=== PATIENT | female | born 1990 | race Caucasian/White ===

== ENCOUNTER 2019-12-17 22:35 | Outpatient (CLI) | payer BC ==
[2019-12-17 23:32] VITALS: BP 120/75; PULSE 95; RESP 16; TEMP 98.7
--- NOTE | 2020-01-03 11:34 | P.MSEPDOC ---
Presenting Problems - Arrival Data Date of Arrival on Unit: 12/17/19 Time of Arrival on Unit: 22:35 Mode of Transport: Ambulatory - Complaint OB-Reason for Admission/Chief Complaint: Decreased Movement Medical History - Information : 1 Para: 0 Term: 0 : 0 Abortions: Spontaneous or Elective: 0 Number of Living Children: 0 - Gestational Age Gestational Age by ATILIO (wks/days): 40 Weeks and 6 Days Review of Systems - Review of Systems Constitutional: No problems Breast: No problems ENT: No problems Cardiovascular: No problems Respiratory: No problems Gastrointestinal: No problems Genitourinary: No problems Musculoskeletal: No problems Neurological: No problems Skin: No problems Vital Signs - Temperature Temperature: 98.7 F Temperature Source: Temporal Artery Scan - Pulse Right Pulse Rate: 95 Pulse Assessment Method: Pulse Oximetry - Respirations Respiratory Rate: 16 O2 Sat by Pulse Oximetry: 97 - Blood Pressure Right Arm Blood Pressure: 120/75 Blood Pressure Mean: 90 Blood Pressure Source: Automatic Cuff Medical Screen Scoring (Pre) - Cervical Exam Dilation: 1-3 cm = 1 Membranes: Intact - Uterine Contractions Frequency: > or = 36 weeks =2 Duration: > 40 seconds = 2 Intensity: N/A - Maternal Vital Signs Maternal Temperature: N/A Maternal Blood Pressure: N/A Signs of Preeclampsia: N/A Maternal Respirations: N/A - Maternal Trauma Maternal Trauma: N/A - Assessment - Baby A Baseline FHR: 130 Heart Rate - NICHD Category: Category I (Normal) = 0 NST: Reactive Position: N/A Station: N/A - Total Score - Baby A Total Score - Baby A: 5 - Total Score - Baby B Total Score - Baby B: 5 - Total Score - Baby C Total Score - Baby C: 5 - Level of Risk - Baby A Level of Risk - Baby A: Low (0-5) - Level of Risk - Baby B Level of Risk - Baby B: Low (0-5) - Level of Risk - Baby C Level of Risk - Baby C: Low (0-5) Physician Notification (Pre) - Physician Notified Physician Notified Date: 12/17/19 Physician Notified Time: 23:15 - Notification Comment Comment: Dr Person called to check on pt. Reported on pts c/o decreased fm all day. Reported on admission and since being here, reactive NST, cntrx every 5-6 but pt is not. feeling them, reported on SVE unchanged from office. Orders to continue monitoring for. another 30-40 minutes, if baby remains reactive, d/c home with instructions. pt had appt. scheduled for wednesday and is to keep that, otherwise return with new or worsening sx Disposition - Disposition OB Disposition: Discharge to home Discharge Date: 12/17/19 Discharge Time: 23:56 I agree with the RN Medical Screening Exam: Yes Risk & Benefit of care provided described in d/c instruction: Yes Diagnosis: DECREASED MOVEMENTS, THIRD TRIMESTER, FETUS 1
== END 2019-12-17 23:59 | disposition home or self-care (01) ==
LOC: FBPOP 22:35
PROVIDERS: ATTEND Obstetrics & Gynecology Obstetrics
DX: O36.8131 Decreased fetal movements, third trimester, fetus 1 (principal); Z3A.40 40 weeks gestation of pregnancy
CPT/HCPCS: 59025; 99213

== ENCOUNTER 2019-12-18 | Inpatient (IN) | payer BC | END 2019-12-21 12:43 | disposition home or self-care (01) | DRG 807 | PROVIDERS: ADMIT Obstetrics & Gynecology | PROC: 0HQ9XZZ Repair Perineum Skin, External Approach (ICD-10-PCS; principal; 2019-12-19) | PROC: 10E0XZZ Delivery of Products of Conception, External Approach (ICD-10-PCS; principal; 2019-12-19) | CPT/HCPCS: 59025; 85025; 86850; 86900; 86901; 88307; 99213 ==

== ENCOUNTER 2022-06-14 06:26 | Inpatient (IN) | payer BC ==
[2022-06-14] MEDS ORDERED: TERBUTALINE 1 MG/ML VIAL SQ PRN (06:45)
[2022-06-14] MEDS ORDERED: METHYLERGONOVINE 0.2 MG/ML 1 ML AMP IM PRN (06:45)
[2022-06-14] MEDS ORDERED: OXYTOCIN 10 UNIT/ML 1 ML VIAL IM PRN (06:45)
[2022-06-14] MEDS ORDERED: AMPICILLIN 2,000 MG in SODIUM CHLORIDE 0.9% 100 ML IVPB STA (06:45)
[2022-06-14] MEDS ORDERED: CARBOPROST TROMETHAMINE 250 MCG/ML 1 ML AMP IM PRN (06:45)
[2022-06-14] MEDS ORDERED: LIDOCAINE 0.5% (PF) 5 MG/ML (50 ML SDV) SQ PRN (06:45)
[2022-06-14] MEDS: LACTATED RINGERS 1,000 ML IV SCH ×2 (07:08→07:30)
[2022-06-14 07:22] LABS: Anisocytosis Slight; Basophils % (A) 0 %; Eosinophils # (A) 0.1 k/uL (0-0.7); Eosinophils % (A) 1 %; HCT 31.2 % (34.0-46.0); HGB 9.6 gm/dL (11.4-16.0); Hypochromasia Marked; Lymphocytes # (A) 1.6 k/uL (1.0-4.8); Lymphocytes % (A) 19 %; MCH 22.8 pg (25.0-35.0); MCHC 30.8 g/dL (31.0-37.0); Mean Platelet Volume 7.8; Microcytosis Moderate; Monocytes # (A) 0.6 k/uL (0-1.0); Monocytes % (A) 7 %; Neutrophils # (A) 6.1 k/uL (1.3-7.7); Neutrophils % (A) 70 %; Platelet Count 222 k/uL (150-450); Poikilocytosis Slight; RBC 4.22 m/uL (3.80-5.40); RDW 17.4 % (11.5-15.5); WBC 8.7 k/uL (3.8-10.6)
[2022-06-14] MEDS ORDERED: SODIUM CHLORIDE 0.9% 100 ML BAG ONE (07:27)
[2022-06-14] MEDS ORDERED: fentaNYL (PF) 50 MCG/ML 5 ML AMP ONE (07:27)
[2022-06-14] MEDS ORDERED: ROPIVACAINE 5 MG/ML 20 ML AMPULE ONE (07:27)
[2022-06-14] MEDS ORDERED: AMPICILLIN 1,000 MG in SODIUM CHLORIDE 0.9% 50 ML IVPB SCH (10:45)
[2022-06-14] MEDS ORDERED: ZOLPIDEM 5 MG TAB PO PRN (12:18)
[2022-06-14] MEDS ORDERED: ACETAMINOPHEN TAB 325 MG TAB PO PRN (12:18)
[2022-06-14] MEDS ORDERED: diphenhydrAMINE 25 MG CAP PO PRN (12:18)
[2022-06-14] MEDS ORDERED: BENZOCAINE/MENTHOL SPRAY 1 GM/SPRAY AEROSOL TOPICAL PRN (12:18)
[2022-06-14] MEDS ORDERED: diphenhydrAMINE 50 MG/ML 1 ML VIAL IVP PRN ×2 (12:18)
[2022-06-14] MEDS ORDERED: LANOLIN CREAM 5 GM TUBE TOPICAL PRN (12:18)
[2022-06-14] MEDS ORDERED: HYDROCORTISONE 2.5% RECTAL CREAM 30 GM TUBE RECTAL PRN (12:18)
[2022-06-14] MEDS ORDERED: SIMETHICONE 80 MG CHEWABLE PO PRN (12:18)
[2022-06-14] MEDS ORDERED: diphenhydrAMINE 50 MG CAP PO PRN (12:18)
--- NOTE | 2022-06-14 12:21 | P.HPOB ---
History of Present Illness H&P Date: 06/14/22 Chief Complaint: IUP at 39-4/7 This is a 32-year-old at 39-4/7 weeks that presents to labor and delivery with complaints of regular painful contractions that started around 1 AM. Patient has been receiving routine care with myself which is been essentially uncomplicated, gestational anemia. Patient was noted to be 4 cm with a bulging bag of water on initial exam. Patient notes good movement denies vaginal bleeding or loss of fluid. On bloodwork this patient has a blood type of A+, rubella status nonimmune, B surface antigen negative, HIV negative, RPR is nonreactive, group beta strep is positive Review of Systems Constitutional: Denies chills, Denies fatigue, Denies fever Ears, nose, mouth and throat: Denies headache Cardiovascular: Reports leg edema Respiratory: Denies dyspnea Gastrointestinal: Denies nausea, Denies vomiting Genitourinary: Reports Past Medical History Past Medical History: No Reported History History of Any Multi-Drug Resistant Organisms: None Reported Additional Past Surgical History / Comment(s): [place] teeth in 2014 Past Anesthesia/Blood Transfusion Reactions: No Reported Reaction Past Psychological History: No Psychological Hx Reported Smoking Status: Never smoker Past Drug Use History: None Reported - Past Family History Father Family Medical History: Cancer Medications and Allergies Home Medications Medication Instructions Recorded Confirmed Type Pnv No.95/Ferrous Fum/Folic AC 1 tab PO DAILY 12/17/19 06/14/22 History [ Multivitamin Tablet] Allergies Allergy/AdvReac Type Severity Reaction Status Date / Time No Known Allergies Allergy Verified 12/17/19 22:39 Exam Osteopathic Statement: *. No significant issues noted on an osteopathic structural exam other than those noted in the History and Physical/Consult. Vital Signs Temp Pulse Resp BP Pulse Ox 06/14/22 06:45 97.5 F L 75 16 115/63 100 Intake and Output 06/13/22 06/14/22 06/14/22 22:59 06:59 14:59 Other: Weight 97.522 kg Targeted physical exam is in general this is a well-nourished well-developed female comfortable with an epidural, breathing is nonlabored, heart has a regular rate and rhythm, abdomen is gravid, she is completely dilated and a bulging bag of water appreciated. heart tones are noted to be category 1, contractions not graphing well. Results Result Diagrams: 06/14/22 07:05 Abnormal Lab Results - Last 24 Hours (Table) 06/14/22 Range/Units 07:05 Hgb 9.6 L (11.4-16.0) gm/dL Hct 31.2 L (34.0-46.0) % MCV 74.0 L (80.0-100.0) fL MCH 22.8 L (25.0-35.0) pg MCHC 30.8 L (31.0-37.0) g/dL RDW 17.4 H (11.5-15.5) % Assessment and Plan (1) Term Current Visit: Yes Status: Acute Code(s): Z34.90 - ENCNTR FOR SUPRVSN OF NORMAL , UNSP, UNSP TRIMESTER SNOMED Code(s): 62639796 (2) Positive GBS test Current Visit: Yes Status: Acute Code(s): B95.1 - STREPTOCOCCUS, GROUP B, CAUSING DISEASES CLASSD ELSR SNOMED Code(s): 466107286 (3) Active labor Current Visit: No Status: Acute Code(s): WNV9984 - SNOMED Code(s): 536060815 (4) Anemia affecting Current Visit: Yes Status: Acute Code(s): O99.019 - ANEMIA COMPLICATING , UNSPECIFIED TRIMESTER SNOMED Code(s): 26552121 Plan: 32 yo at 39 4/7 weeks that presented with complaints of contractions that began around 1am. She was admitted to labor and delivery and quickly requested an epidural. Patient is known GBS positive and antibiotics are begun. Interceed spontaneous vaginal delivery
--- NOTE | 2022-06-14 12:24 | P.PROBDLV ---
Vaginal Delivery Note - . Vaginal Delivery Note: 32-year-old 2 para 1001 presented to labor and delivery at 39-4/7 weeks' complaints of regular painful contractions. Patient was deemed to be in active labor and was admitted to labor and delivery. Patient progressed through labor eventually becoming uncomfortable and requesting epidural placement. Patient was known group B strep positive antibiotics were begun upon admission. Patient noted rupture of membranes with thin meconium at 1043. patient was noted to be completely dilated at that time. Patient was put in a modified lithotomy position and began pushing. With excellent maternal effort she had a normal spontaneous vaginal delivery of a viable female at 12:00, weight of 7 lbs. 14 oz., Apgars of 9 and 9 at one and 5 minutes respectively. After it two- minute delayed the umbilical cord was doubly clamped and cut and the was handed to the maternal abdomen. A spontaneous cry was noted at . On inspection the patient's vaginal vault a first-degree vaginal laceration was appreciated. This was repaired in usual fashion with 3-0 repeat after instillation of lidocaine. Generalized edema was appreciated vaginally from pushing. Uterus was noted be firm and below the umbilicus after delivery. Estimated blood loss 200 mL. All counts were noted correct 2 at the delivery. Mom and tolerated delivery well and are resting comfortably.
[2022-06-14] MEDS ORDERED: OXYTOCIN 30 UNITS/500 ML NS 30 UNIT in SALINE 1 500ML.BAG IV SCH (12:30)
[2022-06-14] MEDS: IBUPROFEN 600 MG TAB PO SCH ×2 (13:06→19:29)
[2022-06-14] MEDS: SENNOSIDES-DOCUSATE SODIUM 1 EACH TAB PO SCH (19:29)
[2022-06-14] MEDS ORDERED: MEASLES-MUMPS-RUBELLA VACC/PF 12,500 UNIT/0.5 ML VIAL SQ ONE (19:38)
[2022-06-15] MEDS: IBUPROFEN 600 MG TAB PO SCH ×3 (00:54→08:35)
[2022-06-15] MEDS: SENNOSIDES-DOCUSATE SODIUM 1 EACH TAB PO SCH (08:36)
[2022-06-15 08:40] VITALS: BP 131/79; PULSE 99; RESP 15; TEMP 97.5
[2022-06-15] MEDS ORDERED: PRENATAL VIT-IRON-FOLIC ACID 1 EACH TABLET PO SCH (09:00)
[2022-06-15 10:04] LABS: Anisocytosis Slight; Basophils % (A) 0 %; Eosinophils # (A) 0.1 k/uL (0-0.7); Eosinophils % (A) 1 %; HCT 27.7 % (34.0-46.0); HGB 8.2 gm/dL (11.4-16.0); Hypochromasia Marked; Lymphocytes # (A) 1.1 k/uL (1.0-4.8); Lymphocytes % (A) 13 %; MCH 22.5 pg (25.0-35.0); MCHC 29.6 g/dL (31.0-37.0); MCV 75.8 fL (80.0-100.0); Mean Platelet Volume 9.2; Microcytosis Slight; Monocytes # (A) 0.5 k/uL (0-1.0); Monocytes % (A) 6 %; Neutrophils # (A) 6.9 k/uL (1.3-7.7); Neutrophils % (A) 78 %; Platelet Count 183 k/uL (150-450); Poikilocytosis Slight; RBC 3.65 m/uL (3.80-5.40); RDW 17.5 % (11.5-15.5); WBC 8.8 k/uL (3.8-10.6)
--- NOTE | 2022-06-15 10:25 | P.DS ---
Providers Date of admission: 06/14/22 06:43 Expected date of discharge: 06/15/22 Attending physician: Leeanna Person Primary care physician: Leeanna Person - Discharge Diagnosis(es) (1) Term Current Visit: Yes Status: Acute (2) Positive GBS test Current Visit: Yes Status: Acute (3) Active labor Current Visit: No Status: Acute (4) Anemia affecting Current Visit: Yes Status: Acute (5) First degree perineal laceration during delivery Current Visit: Yes Status: Acute (6) Status post vaginal delivery Current Visit: No Status: Acute Hospital Course: This is a 32-year-old 2 now para 2 that presented to labor and delivery on 06/14 with complaints of regular painful contractions. Patient stated contractions started around 1 AM. Patient was deemed to be in active labor and was admitted to labor and delivery time. Patient has been receiving routine care which had been essentially uncomplicated up to this point. Patient was admitted and IV antibiotics were begun and she was group beta strep culture positive. Patient progressed through labor eventually becoming uncomfortable and requesting an epidural. Epidural was placed without difficulty by the anesthesia . Patient had spontaneous rupture of membranes revealing thin meconium was noted to be completely dilated. Patient had an urge to push at that time therefore pushing commenced. Patient had a normal spontaneous vaginal delivery of a viable female at 12:00, weight of 7 lbs. 14 oz. Patient did sustain a first-degree vaginal laceration during delivery this was repaired in usual fashion with 3-0 Rapide after instillation of lidocaine. Patient's course has been uneventful. On this day #1 she is ambulating and voiding without difficulty. She is tolerating a regular diet without nausea or vomiting. She states her lochia is moderate. She denies concerns and would like discharge home at 24 hours. Patient Condition at Discharge: Good Plan - Discharge Summary New Discharge Prescriptions: No Action Pnv No.95/Ferrous Fum/Folic AC [ Multivitamin Tablet] 1 tab PO DAILY Discharge Medication List Pnv No.95/Ferrous Fum/Folic AC [ Multivitamin Tablet] 1 tab PO DAILY 12/17/19 [History] Follow up Appointment(s)/Referral(s): Leeanna Person DO [Primary Care Provider] - 4 Weeks Patient Instructions/Handouts: Vaginal Delivery (DC), Vaginal Delivery (GEN) Discharge Disposition: HOME SELF-CARE
== END 2022-06-15 12:47 | disposition home or self-care (01) | DRG 807 ==
LOC: FBPOP 06:26 → 4FBP 06:43
PROVIDERS: ADMIT Obstetrics & Gynecology Obstetrics; ATTEND Obstetrics & Gynecology Obstetrics
PROC: 3E0R3NZ Introduction of Analgesics, Hypnotics, Sedatives into Spinal Canal, Percutaneous Approach (ICD-10-PCS; principal; 2022-06-14)
PROC: 00HU33Z Insertion of Infusion Device into Spinal Canal, Percutaneous Approach (ICD-10-PCS; principal; 2022-06-14)
PROC: 10E0XZZ Delivery of Products of Conception, External Approach (ICD-10-PCS; principal; 2022-06-14)
PROC: 0HQ9XZZ Repair Perineum Skin, External Approach (ICD-10-PCS; principal; 2022-06-14)
DX: O99.02 Anemia complicating childbirth (principal); D64.89 Other specified anemias; O77.0 Labor and delivery complicated by meconium in amniotic fluid; O70.0 First degree perineal laceration during delivery; O99.824 Streptococcus B carrier state complicating childbirth; Z28.310 Unvaccinated for COVID-19; Z3A.39 39 weeks gestation of pregnancy; Z37.0 Single live birth
CPT/HCPCS: 59025; 85025; 86850; 86900; 86901; 90471; 90707; 99213

== ENCOUNTER 2023-09-16 15:19 | Outpatient (CLI) | payer BC ==
[2023-09-16 16:36] VITALS: BP 127/79; PULSE 95; RESP 16; TEMP 97
== END 2023-09-16 15:56 | disposition home or self-care (01) ==
LOC: FBPOP 15:19
PROVIDERS: ATTEND Obstetrics & Gynecology Obstetrics
DX: O30.003 Twin pregnancy, unspecified number of placenta and unspecified number of amniotic sacs, third trimester (principal); Z3A.34 34 weeks gestation of pregnancy
CPT/HCPCS: 59025

== ENCOUNTER 2023-09-28 08:00 | Inpatient (IN) | payer BC ==
[2023-09-28] MEDS ORDERED: OXYTOCIN 10 UNIT/ML 1 ML VIAL IM PRN (08:17)
[2023-09-28] MEDS ORDERED: TRANEXAMIC 1,000 MG/100ML-NACL 1,000 MG in EMPTY BAG 1 BAG IV PRN (08:17)
[2023-09-28] MEDS ORDERED: METHYLERGONOVINE 0.2 MG/ML 1 ML AMP IM PRN (08:17)
[2023-09-28] MEDS ORDERED: LACTATED RINGERS 1,000 ML IV ONE (08:17)
[2023-09-28] MEDS ORDERED: CITRIC ACID-SODIUM CITRATE 15 ML CUP PO ONE (08:17)
[2023-09-28] MEDS ORDERED: miSOPROStoL 200 MCG TAB PO PRN (08:17)
[2023-09-28] MEDS ORDERED: CARBOPROST TROMETHAMINE 250 MCG/ML 1 ML AMP IM PRN (08:17)
[2023-09-28 08:26] LABS: Basophils % (A) 0 %; Eosinophils # (A) 0.1 k/uL (0-0.7); Eosinophils % (A) 1 %; HCT 33.7 % (34.0-46.0); HGB 11.1 gm/dL (11.4-16.0); Hypochromasia Slight; Lymphocytes # (A) 0.6 k/uL (1.0-4.8); Lymphocytes % (A) 9 %; MCHC 32.9 g/dL (31.0-37.0); MCV 81.8 fL (80.0-100.0); Mean Platelet Volume 10.8; Monocytes # (A) 0.6 k/uL (0-1.0); Monocytes % (A) 8 %; Neutrophils % (A) 80 %; Platelet Count 177 k/uL (150-450); RBC 4.12 m/uL (3.80-5.40); RDW 14.9 % (11.5-15.5); WBC 7.5 k/uL (3.8-10.6)
--- NOTE | 2023-09-28 09:52 | P.HPOB ---
History of Present Illness H&P Date: 09/28/23 Chief Complaint: mono/di twins at 36 1/7 weeks This 33-year-old 3 para 2001 at 36 and one sevenths weeks with known [place] chorionic diamniotic twins. Patient has been receiving routine care with myself and maternal- medicine. Patient has undergone testing with good concordant growth being noted between baby A and baby B. On last ultrasound a was noted to be vertex, be noted to be transverse in nature. Given these position recommended primary . Last ultrasound with polyhydramnios noted in a can be. Patient has noted good movement, denies contractions vaginal bleeding or loss of fluid. On bloodwork this patient is A+, rubella status immune, B surface engine negative, HIV negative, RPR is nonreactive, group beta strep culture is positive. 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 Past Medical History Past Medical History: No Reported History History of Any Multi-Drug Resistant Organisms: None Reported Past Surgical History: No Surgical Hx Reported Additional Past Surgical History / Comment(s): [place] teeth in 2014 Past Anesthesia/Blood Transfusion Reactions: No Reported Reaction Past Psychological History: No Psychological Hx Reported Smoking Status: Never smoker Past Alcohol Use History: None Reported Past Drug Use History: None Reported - Past Family History Father Family Medical History: Cancer Medications and Allergies Home Medications Medication Instructions Recorded Confirmed Type Pnv No.95/Ferrous Fum/Folic AC 1 tab PO DAILY 12/17/19 09/28/23 History [ Multivitamin Tablet] Calcium(Unk) 1 tab PO DAILY 09/22/23 09/28/23 History Iron(Unk) 1 tab PO DAILY 09/22/23 09/28/23 History Magnesium (Unk) 1 dose PO DAILY 09/22/23 09/28/23 History Allergies Allergy/AdvReac Type Severity Reaction Status Date / Time No Known Allergies Allergy Verified 09/28/23 08:15 Exam Osteopathic Statement: *. No significant issues noted on an osteopathic structural exam other than those noted in the History and Physical/Consult. Vital Signs Temp Pulse Resp BP Pulse Ox 09/28/23 08:10 97.8 F 115 H 18 126/74 97 Intake and Output 09/27/23 09/28/23 09/28/23 22:59 06:59 14:59 Other: Weight 101.605 kg Results Result Diagrams: 09/28/23 08:15 Abnormal Lab Results - Last 24 Hours (Table) 09/28/23 Range/Units 08:15 Hgb 11.1 L (11.4-16.0) gm/dL Hct 33.7 L (34.0-46.0) % Lymphocytes # 0.6 L (1.0-4.8) k/uL Assessment and Plan (1) Monochorionic diamniotic twin gestation Current Visit: Yes Status: Acute Code(s): O30.039 - TWIN , MONOCHORIONIC/DIAMNIOTIC, UNSP TRIMESTER SNOMED Code(s): 96965142 Plan: 33-year-old at 36 one sevenths weeks that presents for scheduled primary secondary to monochorionic, diamniotic twin gestation. 's noted to be in vertex, transverse presentation. Recommendation for is discussed with patient and she states understanding. Risks of surgery are reviewed including but not limited to infection, bleeding, damage to bladder, bowel, injury. Patient states understanding and wishes to proceed.
[2023-09-28] MEDS: LACTATED RINGERS 1,000 ML IV SCH ×3 (10:09→15:34)
[2023-09-28] MEDS ORDERED: fentaNYL (PF) 50 MCG/ML 2 ML AMP ONE (10:34)
[2023-09-28] MEDS ORDERED: MORPHINE SULFATE (PF) 0.3 MG/0.3 ML SYR ONE (10:34)
[2023-09-28] MEDS ORDERED: KETOROLAC 15 MG/ML 1 ML VIAL ONE (10:34)
[2023-09-28] MEDS ORDERED: OXYTOCIN 30 UNITS/500 ML NS BAG IV ONE (10:34)
--- NOTE | 2023-09-28 11:38 | P.OP ---
Date of Procedure: 09/28/23 Preoperative Diagnosis: [place] chorionic diamniotic twin gestation 36 1/7 weeks, unstable lie, polyhydramnios Postoperative Diagnosis: Same Procedure(s) Performed: Primary low transverse section Anesthesia: spinal Surgeon: Leeanna Person Computer Peripheral Equipment Operator #1: Lito Alvarez Estimated Blood Loss (ml): 530 IV fluids (ml): 700 Urine output (ml): 100 Pathology: other (Placenta) Condition: stable Disposition: PACU Indications for Procedure: Monochorionic, diamniotic twin gestation, polyhydramnios 2 unstable lie of baby B Operative Findings: Viable male infant delivered at 1055, weight of 5 lbs. 9 oz., Apgars of 9 and 9 at one and 5 minutes respectively, viable male infant delivered at 1056, weight of 6 lbs. 8 oz., Apgars of 8 and 9 at one and 5 minutes respectively Normal uterus tubes and ovaries are appreciated. Description of Procedure: Patient taken back to the operating suite where spinal anesthesia was found be adequate by the anesthesia department. She was prepped and draped in the normal sterile fashion in the dorsal supine position. A Steel catheter was placed just after spinal was placed. A Pfannenstiel skin incision was made with the scalpel and carried through to underlying layer of fascia. The fascia was incised in the midline and extended laterally. The superior aspect of the fascial incision was then grasped mini clamps, elevated and underlying rectus muscles dissected off sharply. The inferior aspect of the fascial incision was then grasped mini clamps, elevated and underlying rectus muscles dissected off sharply. The rectus muscles were in the midline the peritoneum was identified and entered. The bladder blade was then inserted and the pelvis and the peritoneal incision was extended superiorly and inferiorly with good visualization the bladder. The vesicouterine peritoneum was identified and the bladder flap was then created using sharp and blunt dissection. The scalpel was used to perform a hysterotomy incision clear fluid was obtained baby A was noted to be in a vertex presentation and delivered in the usual fashion the cord was doubly clamped and cut and handed off to awaiting RN a large pocket of fluid was appreciated in front of baby B's presenting part the head was palpated amniotomy was performed and copious clear fluid was noted and baby B was delivered in a vertex presentation in the usual fashion. The umbilical cords doubly clamped and cut and handed off to awaiting RN. The placenta was delivered manually and the uterus was cleared of all clots and debris. The uterus exteriorized hysterotomy incision was closed with 0 Vicryl in a running locked fashion. A second inverting suture was performed. Small amount of bleeding was noted on the midportion of the uterus therefore a inyhvr-xe-[id number] suture was used to obtain hemostasis. The uterus was then returned to the abdomen. The gutters were cleared of all clots and debris. On inspection the patient's hysterotomy incision a small amount of bleeding was noted on the bladder flap therefore Surgicel powder was placed along this area and along the hysterotomy incision. Hemostasis was appreciated. The peritoneum was then loosely reapproximated. The rectus muscles were inspected and any points of bleeding were made hemostatic with the Bovie. The fascia was then closed with 0 Vicryl in a running fashion from one lateral edge the other. The subcutaneous tissue was irrigated and any points of bleeding were made hemostatic with the Bovie. The subcutaneous tissue was closed with 3-0 Vicryl in a running fashion. The skin was closed with 4-0 Vicryl in a subcuticular fashion. Steri-Strips and sterile dressings were applied. All counts were noted be correct 2. Patient and infants tolerated delivery well and are resting comfortably.
[2023-09-28] MEDS ORDERED: diphenhydrAMINE 25 MG CAP PO PRN (12:35)
[2023-09-28] MEDS ORDERED: ONDANSETRON 4 MG/2 ML VIAL IVP PRN (12:35)
[2023-09-28] MEDS ORDERED: diphenhydrAMINE 50 MG/ML 1 ML VIAL IVP PRN ×2 (12:35)
[2023-09-28] MEDS ORDERED: OXYTOCIN 30 UNITS/500 ML NS 30 UNIT in SALINE 1 500ML.BAG IV SCH (12:35)
[2023-09-28] MEDS ORDERED: diphenhydrAMINE 50 MG CAP PO PRN (12:35)
[2023-09-28] MEDS ORDERED: METOCLOPRAMIDE 5 MG/ML 2 ML VIAL IVP PRN (12:35)
[2023-09-28] MEDS ORDERED: NALOXONE 0.4 MG/ML 1 ML VIAL IV PRN (12:35)
[2023-09-28] MEDS ORDERED: ZOLPIDEM 5 MG TAB PO PRN (12:35)
[2023-09-28] MEDS: ACETAMINOPHEN IV (For NPO) 1,000 MG in EMPTY BAG 1 BAG IVPB SCH ×2 (13:20→19:57)
[2023-09-28] MEDS: IBUPROFEN 600 MG TAB PO SCH ×2 (15:02→22:35)
[2023-09-28] MEDS: IBUPROFEN IV 800 MG in SODIUM CHLORIDE 0.9% 250 ML IV SCH (16:43)
[2023-09-28] MEDS: SENNOSIDES-DOCUSATE SODIUM 1 EACH TAB PO SCH (19:56)
[2023-09-29] MEDS: IBUPROFEN IV 800 MG in SODIUM CHLORIDE 0.9% 250 ML IV SCH (00:15)
[2023-09-29] MEDS: ACETAMINOPHEN TAB 500 MG TAB PO SCH ×4 (01:53→20:46)
[2023-09-29] MEDS: IBUPROFEN 600 MG TAB PO SCH ×4 (04:48→23:07)
[2023-09-29 07:07] LABS: Basophils % (A) 0 %; Eosinophils # (A) 0.1 k/uL (0-0.7); Eosinophils % (A) 1 %; HCT 32.3 % (34.0-46.0); HGB 10.7 gm/dL (11.4-16.0); Hypochromasia Slight; Lymphocytes # (A) 1.3 k/uL (1.0-4.8); Lymphocytes % (A) 16 %; MCH 27.5 pg (25.0-35.0); MCHC 33.3 g/dL (31.0-37.0); MCV 82.7 fL (80.0-100.0); Mean Platelet Volume 9.6; Monocytes # (A) 0.7 k/uL (0-1.0); Monocytes % (A) 9 %; Neutrophils # (A) 5.3 k/uL (1.3-7.7); Neutrophils % (A) 69 %; Platelet Count 180 k/uL (150-450); RBC 3.91 m/uL (3.80-5.40); RDW 14.9 % (11.5-15.5); WBC 7.6 k/uL (3.8-10.6)
--- NOTE | 2023-09-29 08:12 | P.PNOBGPC ---
Subjective - Subjective Principal diagnosis: Postop day 1, primary Interval history: Patient is doing well postoperatively. She is ambulating and voiding without difficulty. She is tolerating a regular diet without nausea or vomiting. She states her pain is well-controlled. Baby B a is in the room with her while be is in the nursery, hoping for discharge to the room today. She is breast- feeding/pumping without difficulty. Lochia is noted to moderate. Patient reports: Reports appetite normal, Reports voiding normally, Reports pain well controlled, Reports ambulating normally : doing well (A in room nursing well, B in nursery for monitoring) Objective - Vital Signs Latest vital signs: Vital Signs Temp Pulse Resp BP Pulse Ox 09/29/23 04:00 97.2 F L 88 16 113/59 09/29/23 00:00 97.9 F 81 16 124/65 09/28/23 20:00 97.7 F 85 16 111/56 09/28/23 15:38 98.2 F 72 16 117/68 98 09/28/23 13:30 95 16 107/57 98 09/28/23 13:00 98.3 F 88 17 118/55 99 09/28/23 12:28 84 17 112/57 97 09/28/23 12:13 87 16 113/56 97 09/28/23 11:58 79 16 113/60 97 09/28/23 11:43 88 17 117/63 98 09/28/23 11:28 98.3 F 83 16 117/66 97 Intake and Output 09/28/23 09/29/23 09/29/23 22:59 06:59 14:59 Output Total 300 1400 Balance -300 -1400 Output: Urine 300 1400 Uretheral (Steel) 300 Other: # Voids 1 - Exam Extremities: Present: normal, edema Abdomen: Present: normal appearance Incision: Present: normal, dry, intact Uterus: Present: normal, firm - Labs Labs: Abnormal Lab Results - Last 24 Hours (Table) 09/28/23 09/29/23 Range/Units 08:15 06:53 Hgb 11.1 L 10.7 L (11.4-16.0) gm/dL Hct 33.7 L 32.3 L (34.0-46.0) % Lymphocytes # 0.6 L (1.0-4.8) k/uL Assessment and Plan (1) Monochorionic diamniotic twin gestation Current Visit: Yes Status: Acute Code(s): O30.039 - TWIN , MONOCHORIONIC/DIAMNIOTIC, UNSP TRIMESTER SNOMED Code(s): 11497669 (2) S/P section Current Visit: Yes Status: Acute Code(s): Z98.891 - HISTORY OF UTERINE SCAR FROM PREVIOUS SURGERY SNOMED Code(s): 341393654 Plan: Patient is doing well postoperatively. We will encourage increased ambulation today. Continue routine postoperative care
[2023-09-29] MEDS: SENNOSIDES-DOCUSATE SODIUM 1 EACH TAB PO SCH ×2 (08:23→22:16)
[2023-09-29] MEDS: SIMETHICONE 80 MG CHEWABLE PO PRN ×4 (08:24→23:09)
[2023-09-29] MEDS: PRENATAL VIT-IRON-FOLIC ACID 1 EACH TABLET PO SCH (11:34)
[2023-09-29] MEDS: LACTATED RINGERS 1,000 ML IV SCH ×2 (22:18→22:59)
[2023-09-30 01:10] VITALS: RESP 16
[2023-09-30] MEDS: ACETAMINOPHEN TAB 500 MG TAB PO SCH ×4 (03:06→22:53)
[2023-09-30] MEDS: IBUPROFEN 600 MG TAB PO SCH ×3 (06:14→19:40)
--- NOTE | 2023-09-30 08:11 | P.PNOBGPC ---
Subjective - Subjective Principal diagnosis: Postop day 2, primary , twins Interval history: Patient is doing well postoperatively. She is ambulating and voiding without difficulty. She has had a bowel movement status post primary . She states her pain is well-controlled. She is tolerating regular diet without nausea or vomiting. She is pumping and breast-feeding baby A, B remains in special care nursery. Patient reports: Reports appetite normal, Reports voiding normally, Reports pain well controlled, Reports ambulating normally : doing well (B remains in the nursery, A in the room with mom and dad doing well ) Objective - Vital Signs Latest vital signs: Vital Signs Temp Pulse Resp BP Pulse Ox 09/30/23 00:00 98.3 F 86 16 110/74 100 09/29/23 15:12 98.1 F 72 17 110/65 98 09/29/23 08:37 98.4 F 80 17 111/67 98 - Exam Extremities: Present: normal, edema Abdomen: Present: normal appearance, soft Incision: Present: normal, dry, intact Uterus: Present: normal, firm Assessment and Plan (1) Monochorionic diamniotic twin gestation Current Visit: Yes Status: Acute Code(s): O30.039 - TWIN , MONOCHORIONIC/DIAMNIOTIC, UNSP TRIMESTER SNOMED Code(s): 47961082 (2) S/P section Current Visit: Yes Status: Acute Code(s): Z98.891 - HISTORY OF UTERINE SCAR FROM PREVIOUS SURGERY SNOMED Code(s): 682108415 Plan: Patient is doing well postoperatively, continue routine postoperative care. Awaiting update on a Baby B for discharge recommendations
[2023-09-30] MEDS: SIMETHICONE 80 MG CHEWABLE PO PRN (09:32)
[2023-09-30] MEDS: SENNOSIDES-DOCUSATE SODIUM 1 EACH TAB PO SCH ×2 (09:36→22:52)
[2023-09-30] MEDS: PRENATAL VIT-IRON-FOLIC ACID 1 EACH TABLET PO SCH (12:52)
[2023-10-01] MEDS: IBUPROFEN 600 MG TAB PO SCH ×3 (03:32→12:37)
[2023-10-01] MEDS: ACETAMINOPHEN TAB 500 MG TAB PO SCH ×3 (05:31→14:33)
[2023-10-01] MEDS: SENNOSIDES-DOCUSATE SODIUM 1 EACH TAB PO SCH (08:33)
--- NOTE | 2023-10-01 09:43 | P.DS ---
Providers Date of admission: 09/28/23 08:00 Expected date of discharge: 10/01/23 Attending physician: Leeanna Person Primary care physician: Stated None - Discharge Diagnosis(es) (1) Monochorionic diamniotic twin gestation Current Visit: Yes Status: Acute (2) S/P section Current Visit: Yes Status: Acute Hospital Course: This is a 33 yo G3 now P3004 at 36 and one sevenths weeks, that presented to labor and delivery on 09/28 for scheduled primary secondary to twin gestation, monochorionic, diamniotic. Patient been receiving routine care with myself and maternal- medicine. Maternal- medicine with recommendations of delivery between 35 and 37 weeks. Patient had multiple ultrasounds for growth with good concordant growth being noted between baby A and baby B, a being vertex B being transverse. On last ultrasound by hydramnios was noted 2 in addition. Given position of be and polyhydramnios recommendation for primary was made. Patient stated understanding. Patient was taken back to the operating suite where spinal anesthesia was obtained by the anesthesia department. Patient underwent primary delivery of twin boys. a delivered at 1055, weight of 5 lbs. 9 oz., infant B delivered at 1056, weight of 6 lbs. 8 oz. Patient's course has been uneventful. On this postoperative day #3 she is indwelling and voiding without difficulty. She is tolerating a regular diet without nausea or vomiting. She is breast-feeding. She states her lochia is moderate. She denies concerns and would like discharge home if infants are discharged along with her. Patient Condition at Discharge: Good Plan - Discharge Summary Discharge Rx Participant: No New Discharge Prescriptions: No Action Pnv No.95/Ferrous Fum/Folic AC [ Multivitamin Tablet] 1 tab PO DAILY Iron(Unk) 1 tab PO DAILY Magnesium (Unk) 1 dose PO DAILY Calcium(Unk) 1 tab PO DAILY Discharge Medication List Pnv No.95/Ferrous Fum/Folic AC [ Multivitamin Tablet] 1 tab PO DAILY 12/17/19 [History] Calcium(Unk) 1 tab PO DAILY 09/22/23 [History] Iron(Unk) 1 tab PO DAILY 09/22/23 [History] Magnesium (Unk) 1 dose PO DAILY 09/22/23 [History] Follow up Appointment(s)/Referral(s): Leeanna Person DO [Doctor of Osteopathic Medicine] - 2 Weeks Patient Instructions/Handouts: (DC), (GEN) Activity/Diet/Wound Care/Special Instructions: No tub baths or intercourse until 6 weeks postoperatively, [id number]-elp-[id number] ibuprofen 6 her milligrams or 3 tablets every 6 hours as needed for pain. Bleeding precautions are reviewed with the patient. Patient is to call the office and make a routine postoperative appointment in 2 weeks. Should she have any concerns prior to this appointment she is urged colla the office. Discharge Disposition: HOME SELF-CARE
[2023-10-01 10:05] VITALS: BP 125/77; PULSE 86; TEMP 97.7
--- NOTE | 2023-10-01 10:53 | P.PN ---
Progress Note - Text 09/29/23 638am 23-year-old female status post with spinal Duramorph. Patient seen and evaluated, patient has a VAS of 2 with no complains of nausea vomiting or pruritus.
[2023-10-01] MEDS: PRENATAL VIT-IRON-FOLIC ACID 1 EACH TABLET PO SCH (12:37)
== END 2023-10-01 15:00 | disposition home or self-care (01) | DRG 788 ==
LOC: 4FBP 08:00
PROVIDERS: ADMIT Obstetrics & Gynecology Obstetrics; ATTEND Obstetrics & Gynecology Obstetrics
PROC: 10D00Z1 Extraction of Products of Conception, Low, Open Approach (ICD-10-PCS; principal; 2023-09-28 10:00)
DX: O32.2XX0 Maternal care for transverse and oblique lie, not applicable or unspecified (principal); O30.033 Twin pregnancy, monochorionic/diamniotic, third trimester; Z37.2 Twins, both liveborn; Z3A.36 36 weeks gestation of pregnancy; O40.3XX0 Polyhydramnios, third trimester, not applicable or unspecified
CPT/HCPCS: 85025; 86850; 86900; 86901